=== PATIENT | female | born 1995 | race African-American/Black ===

== ENCOUNTER 2017-04-15 17:31 | Emergency (ER) | payer MEDICAID ==
[~2017-04-15] VITALS: Ht 165.1 cm; Wt 50.0 kg
[2017-04-15 17:54] VITALS: BP 152/86
== END 2017-04-15 19:15 | disposition left against medical advice (07) ==
LOC: ER 18:16
DX: R51 Headache (principal); Z53.21 Procedure and treatment not carried out due to patient leaving prior to being seen by health care provider

== ENCOUNTER 2020-02-14 10:08 | Emergency (ER) | payer MEDICAID ==
[~2020-02-14] VITALS: Ht 167.6 cm; Wt 68.0 kg
[2020-02-14 10:18] VITALS: BP 111/68
[2020-02-14] MEDS ORDERED: ACETAMINOPHEN 325MG TABLET PO ONE (10:45)
== END 2020-02-14 11:10 | disposition home or self-care (01) ==
LOC: ER 10:08
DX: M79.10 Myalgia, unspecified site (principal)
CPT/HCPCS: 99283